=== PATIENT | male | born 1985 | race American Indian/Alaskan Native ===

== ENCOUNTER 2017-10-27 13:00 | Emergency (ER) | payer SELFPAY ==
[2017-10-27 13:11] VITALS: BP 148/92
[2017-10-27] MEDS ORDERED: MOTRIN PO ONE (14:28)
[2017-10-27] MEDS ORDERED: BOOSTRIX IM ONE (14:28)
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
== END 2017-10-27 14:48 | disposition home or self-care (01) ==
LOC: ED 13:00
DX: S61.012A Laceration without foreign body of left thumb without damage to nail, initial encounter (principal); S60.312A Abrasion of left thumb, initial encounter; J45.909 Unspecified asthma, uncomplicated; W26.0XXA Contact with knife, initial encounter; Y93.89 Activity, other specified; Y92.89 Other specified places as the place of occurrence of the external cause; Y99.8 Other external cause status
CPT/HCPCS: 90471; 90715; 99283